=== PATIENT | female | born 1980 | race American Indian/Alaskan Native ===

== ENCOUNTER 2016-12-13 21:02 | Emergency (ER) | payer MEDICAID ==
[2016-12-13 21:22] VITALS: BP 141/99
[2016-12-13 21:48] LABS: Basophils % (Auto) 1.1 % (0.0-1.8); Eosinophils % (Auto) 8.4 % (0.0-4.3); Hematocrit 34.9 % (30.3-42.9); Hemoglobin 11.2 gm/dl (10.1-14.3); Mean Corpuscular HGB Conc 32 % (30-34); Mean Corpuscular Volume 79 fl (79-97); Platelet Count 299 K/mm3 (140-440); Red Blood Count 4.45 M/mm3 (3.65-5.03); Red Cell Distribution Width 14.7 % (13.2-15.2); White Blood Count 5.6 K/mm3 (4.5-11.0)
[2016-12-13 21:50] LABS: Mean Corpuscular Hemoglobin 25 pg (28-32)
[2016-12-13 22:10] LABS: Anion Gap 17 mmol/L; BUN/Creatinine Ratio 23.75; Blood Urea Nitrogen 19 mg/dL (7-17); Calcium 8.8 mg/dL (8.4-10.2); Carbon Dioxide 26 mmol/L (22-30); Chloride 100.5 mmol/L (98-107); Glucose 91 mg/dL (65-100); Potassium 3.8 mmol/L (3.6-5.0); Sodium 140 mmol/L (137-145)
[2016-12-13 22:13] LABS: Creatine Kinase 162 units/L (30-135)
[2016-12-13 22:18] LABS: Erythrocyte Sedimentation Rate 43 mm/Hr (0-20)
[2016-12-13 22:25] LABS: Creatine Kinase MB < 1.0 ng/mL (0.0-4.0)
--- NOTE | 2016-12-13 22:25 | Emergency Department Report ---
ED Chest Pain HPI - General Chief Complaint: Extremity Problem,Nontraumatic Stated Complaint: CP X 1 MONTH Time Seen by Provider: 12/13/16 22:05 Source: patient Mode of arrival: Ambulatory Limitations: No Limitations - History of Present Illness Initial Comments: This is a 36-year-old female nontoxic, well nourished in appearance, no acute signs of distress the presents to the ED complaining of right upper/substernal chest pain intermittently 1 month. Patient stated she is also complaining of right shoulder aching intermittently 1 month. Patient denies any trauma to her shoulder. Denies any trauma to the chest or rib injury. Patient denies any shortness of breath, numbness, tingling, fever, chills, hemoptysis, calf pain, calf tenderness, stiff neck, nausea or vomiting. Patient stated pain is increased upon palpation and movement of the chest. Denies cough. Denies diaphoresis. Denied difficulty breathing. Denies past medical history or drug allergies. Last menstrual period 12/06/2017. Patient denies any long car ride , recent travels, or recent hospital stays. Denies taking oral contraceptive. MD Complaint: chest pain -: Gradual, month(s) (1) Pain Location: substernal, right chest Pain Radiation: none Severity: mild Severity scale (0 -10): 3 Quality: aching Consistency: intermittent Improves With: nothing Worsens With: nothing re: denies: nausea, vomting, diaphoresis, dyspnea, sense of impending doom Other Symptoms: denies: cough, fever, syncope, rash, acid taste in mouth, leg swelling, palpitations, burping Treatments Prior to Arrival: none - Related Data On Oral Contraceptives: No Previous Rx's Medication Instructions Recorded Last Taken Type Ibuprofen [Motrin] 800 mg PO Q8H PRN #20 tablet 08/28/14 Unknown Rx traMADol [Ultram] 50 mg PO Q6HR PRN #14 tablet 08/28/14 Unknown Rx Ibuprofen [Motrin 600 MG tab] 600 mg PO Q8H PRN #30 tablet 12/13/16 Unknown Rx predniSONE [Deltasone] 20 mg PO BID #10 tab 12/13/16 Unknown Rx Allergies Allergy/AdvReac Type Severity Reaction Status Date / Time No Known Allergies Allergy Unverified 08/27/14 19:47 Heart Score - HEART Score History: Slightly suspicious EKG: Normal Age: < 45 Risk factors: No known risk factors Troponin: < normal limit HEART Score: 0 ED Review of Systems ROS: Stated complaint: CP X 1 MONTH Other details as noted in HPI Constitutional: denies: chills, fever Eyes: denies: eye pain, eye discharge, vision change ENT: denies: ear pain, throat pain Respiratory: denies: cough, shortness of breath, wheezing Cardiovascular: chest pain. denies: palpitations Endocrine: no symptoms reported Gastrointestinal: denies: abdominal pain, nausea, diarrhea Genitourinary: denies: urgency, dysuria, discharge Musculoskeletal: denies: back pain, joint swelling, arthralgia Skin: denies: rash, lesions Neurological: denies: headache, weakness, paresthesias Psychiatric: denies: anxiety, depression Hematological/Lymphatic: denies: easy bleeding, easy bruising ED Past Medical Hx - Past Medical History Previous Medical History?: Yes Hx Hypertension: Yes (unmedicated) - Surgical History Past Surgical History?: No - Social History Smoking Status: Never Smoker Substance Use Type: None - Medications Home Medications: Home Medications Medication Instructions Recorded Confirmed Last Taken Type Ibuprofen [Motrin] 800 mg PO Q8H PRN #20 tablet 08/28/14 Unknown Rx traMADol [Ultram] 50 mg PO Q6HR PRN #14 tablet 08/28/14 Unknown Rx Ibuprofen [Motrin 600 MG tab] 600 mg PO Q8H PRN #30 tablet 12/13/16 Unknown Rx predniSONE [Deltasone] 20 mg PO BID #10 tab 12/13/16 Unknown Rx ED Physical Exam - General Limitations: No Limitations General appearance: alert, in no apparent distress - Head Head exam: Present: atraumatic, normocephalic, normal inspection - Eye Eye exam: Present: normal appearance, PERRL, EOMI. Absent: scleral icterus, conjunctival injection, nystagmus, periorbital swelling, periorbital tenderness Pupils: Present: normal accommodation - ENT ENT exam: Present: normal exam, normal orophraynx, mucous membranes moist, TM's normal bilaterally, normal external ear exam - Neck Neck exam: Present: normal inspection, full ROM. Absent: tenderness, meningismus, lymphadenopathy, thyromegaly - Respiratory Respiratory exam: Present: normal lung sounds bilaterally. Absent: respiratory distress, wheezes, rales, rhonchi, stridor, chest wall tenderness, accessory muscle use, decreased breath sounds, prolonged expiratory - Cardiovascular Cardiovascular Exam: Present: regular rate, normal rhythm, normal heart sounds. Absent: bradycardia, tachycardia, irregular rhythm, systolic murmur, diastolic murmur, rubs, gallop, clicks, JVD, S3, S4 - GI/Abdominal GI/Abdominal exam: Present: soft, normal bowel sounds. Absent: distended, tenderness, guarding, rebound, rigid, diminished bowel sounds - Rectal Rectal exam: Present: deferred - Extremities Exam Extremities exam: Present: normal inspection, full ROM, normal capillary refill. Absent: tenderness, pedal edema, joint swelling, calf tenderness - Expanded Upper Extremity Exam Right General: Present: normal inspection Shoulder Exam: Present: normal inspection, full ROM. Absent: tenderness, swelling, abrasion, laceration, ecchymosis, deformity, crepidus, dislocation, erythema, tenderness over AC joint Upper Arm exam: Present: normal inspection, full ROM. Absent: tenderness, swelling, abrasion, laceration, ecchymosis, deformity, crepidus, dislocation, erythema Elbow exam: Present: normal inspection, full ROM. Absent: tenderness, swelling , abrasion, laceration, ecchymosis, deformity, crepidus, dislocation, erythema, effusion, pain w/ pronation/supination, tenderness over radial head Forearm Wrist exam: Present: normal inspection, full ROM. Absent: tenderness, swelling, abrasion, laceration, ecchymosis, deformity, crepidus, dislocation, erythema, tenderness over anatomical snuff box, pain with axial thumb loading - Back Exam Back exam: Present: normal inspection, full ROM. Absent: tenderness, CVA tenderness (R), CVA tenderness (L), muscle spasm, paraspinal tenderness, vertebral tenderness, rash noted - Neurological Exam Neurological exam: Present: alert, oriented X3, CN II-XII intact, normal gait, reflexes normal - Psychiatric Psychiatric exam: Present: normal affect, normal mood - Skin Skin exam: Present: warm, dry, intact, normal color. Absent: rash - Other Other exam information: Substernal tenderness upon palpitation. ED Course Vital Signs 12/13/16 21:06 Temperature 98.5 F Pulse Rate 73 Respiratory 20 Rate Blood Pressure 141/99 [Right] O2 Sat by Pulse 100 Oximetry - Reevaluation(s) Reevaluation #1: 12/13/16 22:30 Patient is speaking in full sentences with no signs of distress noted. RIO score - Rio Score Age > 65: (0) No Aspirin use within the Past 7 Days: (0) No 3 or more CAD Risk Factors: (0) No 2 or more Angina events in past 24 hrs: (0) No Known CAD with more than 50% Stenosis: (0) No Elevated Cardiac Markers: (0) No ST Deviation Greater than 0.5mm: (0) No RIO Score: 0 ED Medical Decision Making - Lab Data Result diagrams: 12/13/16 21:31 12/13/16 21:31 - EKG Data Interpretation: normal EKG 12/13/16 22:35 Normal sinus rhythm. QRS duration 94. GA interval 156. Vent rate 83. - Medical Decision Making Ed course: This is a 36-year-old female that presents with costochondritis 1- patient was examined myself. Patient is stable. CBC, BMP, troponin, EKG, chest x-ray, right shoulder x-ray, cardiac CK, normal normal findings. 2- exam is consistent with costochondritis. There is tenderness upon palpation of substernal chest. 3- Wells criteria, RIO score, heart score all O's. V/S stable. 4- patient prednisone and ibuprofen at discharge. 5- patient was instructed to follow-up with a primary care doctor in 3-5 days or symptoms such as worsening chest pain, shortness of breath, hemoptysis, difficult breathing, calf pain, or worsening symptoms return to emergency room as soon as possible 6- At time time of discharge, the patient does not seem toxic or ill in appearance. No acute signs of distress noted. Patient agrees to discharge treatment plan of care. No further questions noted by the patient. Critical care attestation.: If time is entered above; I have spent that time in minutes in the direct care of this critically ill patient, excluding procedure time. ED Disposition Clinical Impression: Costochondritis Disposition: DC-01 TO HOME OR SELFCARE Is pt being admited?: No Does the pt Need Aspirin: No Condition: Stable Instructions: Costochondritis (ED), Prednisone (By mouth), Ibuprofen (By mouth) Additional Instructions: Follow-up with a primary care doctor in 3-5 days or symptoms such as worsening chest pain, shortness of breath, hemoptysis, difficult breathing, calf pain, or worsening symptoms return to emergency room as soon as possible. Prescriptions: Ibuprofen [Motrin 600 MG tab] 600 mg PO Q8H PRN #30 tablet PRN Reason: Pain predniSONE [Deltasone] 20 mg PO BID #10 tab Referrals: EVER JUAN MD [Primary Care Provider] - 3-5 Days PRIMARY CAREMD [Referring] - 3-5 Days CHEVY HAIDER MD [Staff Physician] - 3-5 Days [facility] [Outside] - 3-5 Days [facility] [place] [Outside] - 3-5 Days Forms: Work/School Release Form(ED)
--- NOTE | 2016-12-13 22:42 | XRay Report ---
FINAL REPORT EXAM: XR SHOULDER 2+V RT HISTORY: Rt Shoulder Pain, Consent signed, Get Report TECHNIQUE: Right shoulder three views three images PRIORS: None. FINDINGS: Visualized portion of the right lung appears clear. Bone mineralization appears within normal limits. No acute fracture or subluxation is identified. No gross abnormality is seen in the visualized soft tissues. IMPRESSION: 1. No acute osseous abnormality is identified.
--- NOTE | 2016-12-13 22:44 | XRay Report ---
FINAL REPORT EXAM: XR RIBS UNILAT 2V RT HISTORY: Rt Rib Pain, Consent signed, Get Report TECHNIQUE: Right ribs two views 2 images PRIORS: None. FINDINGS: Visualized portion of the lungs are clear. Heart size is within normal limits. No focal lytic or sclerotic lesions are identified. No acute fracture is identified. IMPRESSION: 1. No displaced rib fracture is identified. 2. No focal lytic or sclerotic lesions are identified.
--- NOTE | 2016-12-13 23:58 | XRay Report ---
FINAL REPORT EXAM: XR CHEST ROUTINE 2V HISTORY: chest pain TECHNIQUE: PA and lateral chest radiographs PRIORS: None. FINDINGS: No focal consolidations are seen in the lungs and there are no pleural effusions.The cardiomediastinal silhouette is within normal limits for size and contour. No acute osseous abnormality is identified. IMPRESSION: 1. No definite radiographic evidence of acute cardiopulmonary disease.
== END 2016-12-14 01:05 | disposition home or self-care (01) ==
LOC: ED 21:02
DX: M94.0 Chondrocostal junction syndrome [Tietze] (principal); I10 Essential (primary) hypertension
CPT/HCPCS: 36415; 71020; 80048; 82550; 82553; 84484; 84703; 85025; 85652; 86140; 93005; 93010

== ENCOUNTER 2017-05-03 20:52 | Emergency (ER) | payer MEDICAID ==
[2017-05-03 22:59] VITALS: BP 120/82
[2017-05-03] MEDS ORDERED: MOTRIN PO ONE ×2 (22:59→23:07)
== END 2017-05-04 05:03 | disposition left against medical advice (07) ==
LOC: ED 20:52
DX: M79.1 Myalgia (principal); R51 Headache; Z53.21 Procedure and treatment not carried out due to patient leaving prior to being seen by health care provider
CPT/HCPCS: 87400

== ENCOUNTER 2020-08-17 10:26 | Emergency (ER) | payer MEDICAID ==
[2020-08-17 11:21] VITALS: BP 151/94
[2020-08-17] MEDS ORDERED: TETANUS,DIPH,PERTUSS(ACELL) VACCINE 0.5 ML SYRINGE IM ONE (11:31)
--- NOTE | 2020-08-17 11:31 | Emergency Department Report ---
- General Chief complaint: Skin/Abscess/Foreign Body Stated complaint: INSECT BITE Time Seen by Provider: 08/17/20 11:25 Source: patient Mode of arrival: Ambulatory Limitations: No Limitations - History of Present Illness Initial comments: Patient is a 40-year-old female presents emergency room with complaints of a possible insect bite to the right lateral neck that occurred on 08/08/2020. She states that she has been using cortisone ointment and which leonora without much relief. She states that she has noticed an increase amount of swelling in that region. She states that she attempted to pop it. She denies any drainage. She states nothing came out of it. She denies any fever, nausea, vomiting, diarrhea, chills, body aches, numbness, weakness. Past medical history of hypertension. No allergies medications. - Related Data Previous Rx's Medication Instructions Recorded Last Taken Type Ibuprofen [Motrin] 800 mg PO Q8H PRN #20 tablet 08/28/14 Unknown Rx traMADoL [Ultram] 50 mg PO Q6HR PRN #14 tablet 08/28/14 Unknown Rx Ibuprofen [Motrin 600 MG tab] 600 mg PO Q8H PRN #30 tablet 12/13/16 Unknown Rx predniSONE [Deltasone] 20 mg PO BID #10 tab 12/13/16 Unknown Rx Cyclobenzaprine [Flexeril] 10 mg PO TID PRN #30 tablet 08/07/18 Unknown Rx Menthol/Camphor [[place] 1 applicatio TP QID PRN #1 08/07/18 Unknown Rx Ointment] oint...g. Naproxen [Naprosyn] 500 mg PO BID PRN #30 tablet 08/07/18 Unknown Rx predniSONE [Deltasone] 40 mg PO QDAY 5 Days #10 tab 08/07/18 Unknown Rx Mupirocin [Bactroban 2% OINT] 1 applic TP TID #1 tube 08/17/20 Unknown Rx Sulfamethoxazole/Trimethoprim 1 each PO BID 7 Days #14 tablet 08/17/20 Unknown Rx [Bactrim DS TAB] Allergies Allergy/AdvReac Type Severity Reaction Status Date / Time No Known Allergies Allergy Verified 08/17/20 11:21 Abscess Boil HPI - HPI Chief Complaint: Skin/Abscess/Foreign Body Stated Complaint: INSECT BITE Time Seen by Provider: 08/17/20 11:25 Home Medications: Previous Rx's Medication Instructions Recorded Last Taken Type Ibuprofen [Motrin] 800 mg PO Q8H PRN #20 tablet 08/28/14 Unknown Rx traMADoL [Ultram] 50 mg PO Q6HR PRN #14 tablet 08/28/14 Unknown Rx Ibuprofen [Motrin 600 MG tab] 600 mg PO Q8H PRN #30 tablet 12/13/16 Unknown Rx predniSONE [Deltasone] 20 mg PO BID #10 tab 12/13/16 Unknown Rx Cyclobenzaprine [Flexeril] 10 mg PO TID PRN #30 tablet 08/07/18 Unknown Rx Menthol/Camphor [[place] 1 applicatio TP QID PRN #1 08/07/18 Unknown Rx Ointment] oint...g. Naproxen [Naprosyn] 500 mg PO BID PRN #30 tablet 08/07/18 Unknown Rx predniSONE [Deltasone] 40 mg PO QDAY 5 Days #10 tab 08/07/18 Unknown Rx Mupirocin [Bactroban 2% OINT] 1 applic TP TID #1 tube 08/17/20 Unknown Rx Sulfamethoxazole/Trimethoprim 1 each PO BID 7 Days #14 tablet 08/17/20 Unknown Rx [Bactrim DS TAB] Allergies/Adverse Reactions: Allergies Allergy/AdvReac Type Severity Reaction Status Date / Time No Known Allergies Allergy Verified 08/17/20 11:21 ED Review of Systems ROS: Stated complaint: INSECT BITE Other details as noted in HPI Comment: All other systems reviewed and negative ED Past Medical Hx - Past Medical History Hx Hypertension: Yes (unmedicated) - Surgical History Past Surgical History?: No - Social History Smoking Status: Never Smoker Substance Use Type: None - Medications Home Medications: Home Medications Medication Instructions Recorded Confirmed Last Taken Type Ibuprofen [Motrin] 800 mg PO Q8H PRN #20 tablet 08/28/14 Unknown Rx traMADoL [Ultram] 50 mg PO Q6HR PRN #14 tablet 08/28/14 Unknown Rx Ibuprofen [Motrin 600 MG tab] 600 mg PO Q8H PRN #30 tablet 12/13/16 Unknown Rx predniSONE [Deltasone] 20 mg PO BID #10 tab 12/13/16 Unknown Rx Cyclobenzaprine [Flexeril] 10 mg PO TID PRN #30 tablet 08/07/18 Unknown Rx Menthol/Camphor [[place] 1 applicatio TP QID PRN #1 08/07/18 Unknown Rx Ointment] oint...g. Naproxen [Naprosyn] 500 mg PO BID PRN #30 tablet 08/07/18 Unknown Rx predniSONE [Deltasone] 40 mg PO QDAY 5 Days #10 tab 08/07/18 Unknown Rx Mupirocin [Bactroban 2% OINT] 1 applic TP TID #1 tube 08/17/20 Unknown Rx Sulfamethoxazole/Trimethoprim 1 each PO BID 7 Days #14 tablet 08/17/20 Unknown Rx [Bactrim DS TAB] ED Physical Exam - General Limitations: No Limitations General appearance: alert, in no apparent distress - Head Head exam: Present: atraumatic, normocephalic - Eye Eye exam: Present: normal appearance - ENT ENT exam: Present: mucous membranes moist - Neck Neck exam: Present: other (2 cm area of induration present to the right lateral neck, no drainage, no fluctuance, no necrosis, no significant surrounding cellulitis ) - Respiratory Respiratory exam: Absent: respiratory distress, accessory muscle use - Neurological Exam Neurological exam: Present: alert, oriented X3 - Psychiatric Psychiatric exam: Present: normal affect, normal mood ED Course Vital Signs 08/17/20 11:19 Temperature 98.6 F Pulse Rate 82 Respiratory 20 Rate Blood Pressure 151/94 O2 Sat by Pulse 100 Oximetry ED Medical Decision Making - Medical Decision Making Patient is a 40-year-old female presents emergency room with complaints of a possible insect bite to the right lateral neck that occurred on 08/08/2020. She states that she has been using cortisone ointment and which leonora without much relief. She states that she has noticed an increase amount of swelling in that region. She states that she attempted to pop it. She denies any drainage. She states nothing came out of it. She denies any fever, nausea, vomiting, diarrhea, chills, body aches, numbness, weakness. Past medical history of hypertension. No allergies medications. Vitals are stable. On exam:2 cm area of induration present to the right lateral neck, no drainage, no fluctuance, no necrosis, no significant surrounding cellulitis. Examination. Consistent with insect bite which appears to have a secondary mild infection and early furuncle, no drainable abscess at this time. Patient given prescription for mupirocin ointment and Bactrim. Discussed the importance of reexamination. Discussed return precautions. Advised patient Please use medication as prescribed. Follow-up with your primary care doctor in the next 2 to 3 days for reexamination. Return to emergency room for any new or symptoms. Critical care attestation.: If time is entered above; I have spent that time in minutes in the direct care of this critically ill patient, excluding procedure time. ED Disposition Clinical Impression: Furuncle Insect bite Qualifiers: Encounter type: initial encounter Site of insect bite: other part of neck Qualified Code(s): S10.86XA - Insect bite of other specified part of neck, initial encounter Disposition: TO HOME OR SELFCARE Is pt being admited?: No Does the pt Need Aspirin: No Condition: Stable Instructions: Skin Abscess, Insect Bite, Adult, [id number] Additional Instructions: Please use medication as prescribed. Follow-up with your primary care doctor in the next 2 to 3 days for reexamination. Return to emergency room for any new or symptoms. Prescriptions: Sulfamethoxazole/Trimethoprim [Bactrim DS TAB] 1 each PO BID 7 Days #14 tablet Mupirocin [Bactroban 2% OINT] 1 applic TP TID #1 tube Referrals: MAC CASAS MD [Staff Physician] - 2-3 Days [facility] [Provider Group] - 2-3 Days Forms: Work/School Release Form(ED) Time of Disposition: 11:30 Print Language: ROMANIAN
== END 2020-08-17 12:29 | disposition home or self-care (01) ==
LOC: ED 10:26
DX: S10.96XA Insect bite of unspecified part of neck, initial encounter (principal); L02.92 Furuncle, unspecified; I10 Essential (primary) hypertension; Z79.899 Other long term (current) drug therapy; W57.XXXA Bitten or stung by nonvenomous insect and other nonvenomous arthropods, initial encounter; Y93.89 Activity, other specified; Y92.89 Other specified places as the place of occurrence of the external cause; Y99.8 Other external cause status
CPT/HCPCS: 90471; 90715; 99282

== ENCOUNTER 2021-08-13 21:26 | Emergency (ER) | payer MEDICAID, OTHER ==
--- NOTE | 2021-08-13 22:09 | XRay Report ---
EXAMINATION: XR hand 3+V LT, INDICATION / CLINICAL INFORMATION: Left hand injury COMPARISON: None available. FINDINGS: BONES / JOINT(S): No acute fracture or subluxation. SOFT TISSUES: No significant abnormality. ADDITIONAL FINDINGS: None. IMPRESSION: No acute process. Signer Name: Adriel Cameron MD Signed: 08/13/2021 10:05 PM Workstation Name: [id number]
[2021-08-13] MEDS ORDERED: oxyCODONE /ACETAMINOPHEN 5-325MG TAB PO ONE (23:10)
[2021-08-13] MEDS ORDERED: IBUPROFEN 600 MG TAB PO ONE (23:10)
[2021-08-13] MEDS ORDERED: ONDANSETRON 4 MG ODT TAB PO ONE (23:10)
--- NOTE | 2021-08-14 00:18 | Emergency Department Report ---
ED Upper Extremity Inj HPI - General Chief Complaint: Extremity Injury, Upper Stated Complaint: LEFT THUMB SWELLING Source: patient Mode of arrival: Ambulatory Limitations: No Limitations - History of Present Illness Initial Comments: Patient is a 41-year-old -[place] female with a history of hypertension who presents to the ED with complaint of acute onset persistent left hand and left arm pain after his 15-year-old son who was playing around and horsing at home 2 days ago tripped and fell on her left hand and left arm, landing on the left hand and left arm with his knee. Patient states that she has been taking [id number]-[id number] medication with no relief. Patient states that she is unable to perform any active range of motion to the left arm because of worsening pain. Patient denies headache, dizziness, syncope, nausea and vomiting, numbness and tingling or weakness of left hand, chest pain or shortness of breath, fall or change in vision. MD Complaint: Injury to:: left, hand, finger (Thumb pain) -: Sudden, days(s) (2) Other Extremity Injury: Fingers: Left (Left thumb pain and swelling), Hand: Left (Left hand and thumb pain) Other Injuries: none Handedness: right Place: home Severity scale (0 -10): 8 Improves With: none Worsens With: movement of extremity Context: direct blow (Her 15-year-old son landed on her left arm and left hand), crush, injury Associated Symptoms: denies other symptoms. denies: weakness, numbness, neck pain, suspects foreign body, nausea/vomiting, heard/felt popping sensat - Related Data Previous Rx's Medication Instructions Recorded Last Taken Type Ibuprofen [Motrin] 800 mg PO Q8H PRN #20 tablet 08/28/14 Unknown Rx Ibuprofen [Motrin 600 MG tab] 600 mg PO Q8H PRN #30 tablet 12/13/16 Unknown Rx predniSONE [Deltasone] 20 mg PO BID #10 tab 12/13/16 Unknown Rx Cyclobenzaprine [Flexeril] 10 mg PO TID PRN #30 tablet 08/07/18 Unknown Rx Menthol/Camphor [[place] 1 applicatio TP QID PRN #1 08/07/18 Unknown Rx Ointment] oint...g. Naproxen [Naprosyn] 500 mg PO BID PRN #30 tablet 08/07/18 Unknown Rx predniSONE [Deltasone] 40 mg PO QDAY 5 Days #10 tab 08/07/18 Unknown Rx Mupirocin [Bactroban 2% OINT] 1 applic TP TID #1 tube 08/17/20 Unknown Rx Sulfamethoxazole/Trimethoprim 1 each PO BID 7 Days #14 tablet 08/17/20 Unknown Rx [Bactrim DS TAB] Ibuprofen [Motrin] 800 mg PO Q8HR PRN #30 tablet 08/14/21 Unknown Rx traMADoL [Ultram 50 MG tab] 50 mg PO Q6HR PRN #12 tablet 08/14/21 Unknown Rx Allergies Allergy/AdvReac Type Severity Reaction Status Date / Time No Known Allergies Allergy Verified 08/17/20 11:21 ED Review of Systems ROS: Stated complaint: LEFT THUMB SWELLING Other details as noted in HPI Constitutional: denies: chills, fever Eyes: denies: eye pain, eye discharge, vision change ENT: denies: ear pain, throat pain Respiratory: denies: cough, shortness of breath, wheezing Cardiovascular: denies: chest pain, palpitations Endocrine: no symptoms reported Gastrointestinal: denies: abdominal pain, nausea, diarrhea Genitourinary: denies: urgency, dysuria, discharge Musculoskeletal: joint swelling (Left thumb swelling), arthralgia (Left thumb and left hand pain). denies: back pain Skin: denies: rash, lesions Neurological: denies: headache, weakness, paresthesias Psychiatric: denies: anxiety, depression Hematological/Lymphatic: denies: easy bleeding, easy bruising ED Past Medical Hx - Past Medical History Previous Medical History?: Yes Hx Hypertension: Yes (unmedicated) - Surgical History Past Surgical History?: No - Social History Smoking Status: Never Smoker Substance Use Type: None - Medications Home Medications: Home Medications Medication Instructions Recorded Confirmed Last Taken Type Ibuprofen [Motrin] 800 mg PO Q8H PRN #20 tablet 08/28/14 Unknown Rx Ibuprofen [Motrin 600 MG tab] 600 mg PO Q8H PRN #30 tablet 12/13/16 Unknown Rx predniSONE [Deltasone] 20 mg PO BID #10 tab 12/13/16 Unknown Rx Cyclobenzaprine [Flexeril] 10 mg PO TID PRN #30 tablet 08/07/18 Unknown Rx Menthol/Camphor [[place] 1 applicatio TP QID PRN #1 08/07/18 Unknown Rx Ointment] oint...g. Naproxen [Naprosyn] 500 mg PO BID PRN #30 tablet 08/07/18 Unknown Rx predniSONE [Deltasone] 40 mg PO QDAY 5 Days #10 tab 08/07/18 Unknown Rx Mupirocin [Bactroban 2% OINT] 1 applic TP TID #1 tube 08/17/20 Unknown Rx Sulfamethoxazole/Trimethoprim 1 each PO BID 7 Days #14 tablet 08/17/20 Unknown Rx [Bactrim DS TAB] Ibuprofen [Motrin] 800 mg PO Q8HR PRN #30 tablet 08/14/21 Unknown Rx traMADoL [Ultram 50 MG tab] 50 mg PO Q6HR PRN #12 tablet 08/14/21 Unknown Rx ED Physical Exam - General Limitations: No Limitations General appearance: alert, in no apparent distress - Head Head exam: Present: atraumatic, normocephalic, normal inspection - Eye Eye exam: Present: normal appearance, PERRL, EOMI Pupils: Present: normal accommodation - ENT ENT exam: Present: normal exam, normal orophraynx, mucous membranes moist, TM's normal bilaterally, normal external ear exam - Neck Neck exam: Present: normal inspection, full ROM. Absent: tenderness - Respiratory Respiratory exam: Present: normal lung sounds bilaterally. Absent: respiratory distress, wheezes, chest wall tenderness, accessory muscle use, decreased breath sounds, prolonged expiratory - Cardiovascular Cardiovascular Exam: Present: regular rate, normal rhythm, normal heart sounds. Absent: systolic murmur, diastolic murmur, rubs, gallop - GI/Abdominal GI/Abdominal exam: Present: soft, normal bowel sounds. Absent: tenderness, guarding, rebound, hyperactive bowel sounds, hypoactive bowel sounds, organomegaly - Extremities Exam Extremities exam: Present: normal inspection, tenderness (Palpable left thumb and left hand tenderness), normal capillary refill, joint swelling (Left thumb with tenderness and swelling). Absent: full ROM (Limited range of motion left arm due to pain), pedal edema - Back Exam Back exam: Present: normal inspection, full ROM. Absent: tenderness, CVA tenderness (R), CVA tenderness (L), muscle spasm, paraspinal tenderness, vertebral tenderness - Neurological Exam Neurological exam: Present: alert, oriented X3, CN II-XII intact, normal gait, reflexes normal - Psychiatric Psychiatric exam: Present: normal affect, normal mood - Skin Skin exam: Present: warm, dry, intact, normal color. Absent: rash ED Course Vital Signs 08/13/21 21:38 Temperature 98.6 F Pulse Rate 82 Respiratory 16 Rate Blood Pressure 141/92 [Right] O2 Sat by Pulse 98 Oximetry ED Medical Decision Making - Radiology Data Radiology results: report reviewed, image reviewed [facility] [address] [place] [address] XRay Report Signed Patient: ROSA ELENA LIEBERMAN MR#: [id number] : 1980 Acct:[id number] Age/Sex: 41 / F ADM Date: 08/13/21 Loc: ED Attending Dr: Ordering Physician: HAM GLEZ MD Date of Service: 08/13/21 Procedure(s): XR hand 3+V LT Accession Number(s): [id number] cc: ED MD [place] Fluoro Time In Minutes: EXAMINATION: XR hand 3+V LT, INDICATION / CLINICAL INFORMATION: Left hand injury COMPARISON: None available. FINDINGS: BONES / JOINT(S): No acute fracture or subluxation. SOFT TISSUES: No significant abnormality. ADDITIONAL FINDINGS: None. IMPRESSION: No acute process. Signer Name: Ruben Pierre MD Signed: 08/13/2021 10:05 PM Workstation Name: [id number] Transcribed By: JS Dictated By: RUBEN PIERRE MD Electronically Authenticated By: RUBEN PIERRE MD Signed Date/Time: 08/13/212204 DD/ 03 TD/TT: - Medical Decision Making This is a 41-year-old -[place] female with a history of hypertension who presents to the ED with complaint of acute onset persistent left hand and left arm pain after his 15-year-old son who was playing around and horsing at home 2 days ago tripped and fell on her left hand and left arm, landing on the left hand and left arm with his knee. Patient states that she has been taking [id number] medication with no relief. Patient states that she is unable to perform any active range of motion to the left arm because of worsening pain. In the ED, patient is alert and oriented x3 and is not in any distress. Patient was treated for pain in the ED and left hand x-ray showed no acute fractures or subluxations of left hand or left thumb. Patient left thumb was splinted with finger splint and on reevaluation, the patient left hand and left thumb are neurovascularly intact. Patient was therefore discharged home on pain medications and advised to follow-up with her primary care physician in 7 to 10 days for reevaluation or return to the ED immediately if symptoms get worse. - Differential Diagnosis Number splint Critical care attestation.: If time is entered above; I have spent that time in minutes in the direct care of this critically ill patient, excluding procedure time. ED Disposition Clinical Impression: Sprain of left thumb Qualifiers: Encounter type: initial encounter Sprain of finger site: interphalangeal joint Qualified Code(s): S63.622A - Sprain of interphalangeal joint of left thumb, initial encounter Contusion of left hand including fingers Qualifiers: Encounter type: initial encounter Qualified Code(s): S60.222A - Contusion of left hand, initial encounter; S60.00XA - Contusion of unspecified finger without damage to nail, initial encounter Disposition: 01 HOME / SELF CARE / HOMELESS Is pt being admited?: No Does the pt Need Aspirin: No Condition: Stable Instructions: Finger Sprain (ED), Finger Sprain, Adult, [id number], Thumb Sprain, Hand Contusion, [id number] Additional Instructions: The left arm x-ray showed no acute fractures or subluxations. The injury is likely musculoskeletal sprain. Therefore take medication with food, drink plenty of fluids and follow-up with your primary care physician in 7 to 10 days for reevaluation. Return to the ED immediately if symptoms get worse. Prescriptions: Ibuprofen [Motrin] 800 mg PO Q8HR PRN #30 tablet PRN Reason: Pain , Severe (7-10) traMADoL [Ultram 50 MG tab] 50 mg PO Q6HR PRN #12 tablet PRN Reason: Pain Referrals: [facility] [Provider Group] - 7-10 days Forms: Work/School Release Form(ED) Time of Disposition: 00:15 Print Language: ICELANDIC
[2021-08-14 01:19] VITALS: BP 118/64
== END 2021-08-14 00:49 | disposition home or self-care (01) ==
LOC: ED 21:26
DX: S63.622A Sprain of interphalangeal joint of left thumb, initial encounter (principal); S60.222A Contusion of left hand, initial encounter; I10 Essential (primary) hypertension; Z79.899 Other long term (current) drug therapy; W18.39XA Other fall on same level, initial encounter; Y93.89 Activity, other specified; Y92.89 Other specified places as the place of occurrence of the external cause; Y99.8 Other external cause status
CPT/HCPCS: 99283; J3490; Q0162